=== PATIENT | female | born 1950 | race Caucasian/White ===

== ENCOUNTER → 2024-10-02 12:35 | Outpatient (REF) | payer MEDICARE, OTHER, SELFPAY ==
[2024-10-02 13:16] LABS: Hematocrit 30.8 % (37.0-47.0); Hemoglobin 9.3 g/dL (12.0-16.0); Mean Corp Hgb Conc. 30.2 g/dL (33.0-37.0); Mean Corpuscular Volume 88.0 fL (81.0-99.0); Platelet Count 177 10^3/uL (130-400); Red Cell Dist. Width 17.5 % (11.5-14.5)
[2024-10-02 13:38] LABS: Nucleated Red Blood Cells % 0 %
[2024-10-02 14:09] LABS: ALT (SGPT) 12 U/L (0-35); AST (SGOT) 21 U/L (14-36); Albumin 3.8 g/dl (3.5-5.0); Alkaline Phosphatase 36 U/L (38-126); Blood Urea Nitrogen 25 mg/dl (7-17); Calcium 8.9 mg/dl (8.4-10.2); Carbon Dioxide 24 mmol/L (22-30); Chloride 112 mmol/L (98-107); Glucose 83 mg/dl (70-99); Potassium 4.0 mmol/L (3.5-5.1); Sodium 143 mmol/L (135-145); Total Protein 6.4 g/dl (6.3-8.2); eGFR > 60.00
== END ==
LOC: SDSPAT 12:35
PROVIDERS: ATTENDING PHYSICIAN Student in an Organized Health Care Education/Training Program; FAMILY PHYSICIAN Internal Medicine; OTHER PHYSICIAN Internal Medicine Cardiovascular Disease
DX: I20.0 Unstable angina (principal); I10 Essential (primary) hypertension; E11.9 Type 2 diabetes mellitus without complications
CPT/HCPCS: 36415; 80053; 85025; 93005

== ENCOUNTER 2024-10-13 07:28 | Day surgery (SDC) | payer MEDICARE, OTHER, SELFPAY ==
[2024-10-13] VITALS (10 sets, daily range): BP systolic 111–133; BP diastolic 52–64; BMI 29.3
[2024-10-13 08:24] LABS: Glucose - Point of Care 93 mg/dl (70-99)
[2024-10-13] MEDS: NSS 204 ML IV (08:31)
--- NOTE | 2024-10-13 10:24 | ITS.CL.PN ---
[employer] - Procedure Note
Procedure
Procedure Note:
CARDIAC CATHETERIZATION REPORT
Date of Procedure: 10/13/2024
Referring: Dr. Samm Hu MD
Indication: anginal chest pain with positive coronary CTA
PROCEDURE(S)
1. left heart catheterization
2. coronary angiography
ACCESS: 6F right left artery (closure: radial band)
CATHETERS
1. 6F JR4
2. 6F JL4
MODERATE SEDATION: 25 minutes of moderate sedation was utilized. An independent medical administrative was present to assist with and help manage the patient's level of consciousness and physiologic status.
HEMODYNAMIC DATA
LV 128/13 (EDP 23) mmHg
AO 135/62 (mean 90) mmHg
CORONARY ANGIOGRAPHY
Dominance: Right
LM: Large, with very mild distal tapering
LAD: Large-caliber vessel giving rise to an early dominant septal gas desulfurizer, large D1, and small D2 before wrapping around the apex. There is diffuse extraluminal calcium in the proximal to mid vessel but no significant obstructive disease with
mild luminal irregularities up to 30%.
LCx: Moderate caliber vessel giving rise to a small ramus/OM1, small OM2, and small LPL branch. There is mild diffuse disease.
RCA: Large vessel giving rise to a moderate caliber RPDA, small RPL1, moderate caliber RPL2, and small RPL3. There are mild luminal irregularities only.
RADIATION: dose 306 mGy; DAP 19.2 Gy*cm2; fluoroscopy time 2.6 min
CONCLUSIONS
1. Nonobstructive coronary artery disease as described in a right dominant system
2. Mildly elevated LV filling pressure and no aortic stenosis
RECOMMENDATIONS
1. Aggressive secondary prevention of coronary artery disease
2. Workup for etiology of patient's symptoms not related to epicardial coronary disease
Copy to: Dr. Samm Hu MD (instructional design manager); Dr. Helder Dean MD (PCP)
Signed: Narendra Bolivar MD, PhD
== END 2024-10-13 13:00 | disposition home or self-care (01) ==
LOC: CATH 07:28
PROVIDERS: ATTENDING PHYSICIAN Student in an Organized Health Care Education/Training Program; FAMILY PHYSICIAN Internal Medicine
DX: I25.119 Atherosclerotic heart disease of native coronary artery with unspecified angina pectoris (principal); E11.9 Type 2 diabetes mellitus without complications; I10 Essential (primary) hypertension; D50.9 Iron deficiency anemia, unspecified; I44.7 Left bundle-branch block, unspecified; I47.10 Supraventricular tachycardia, unspecified; G20.A1 Parkinson's disease without dyskinesia, without mention of fluctuations; Z79.4 Long term (current) use of insulin; E78.5 Hyperlipidemia, unspecified; C91.10 Chronic lymphocytic leukemia of B-cell type not having achieved remission; Z92.3 Personal history of irradiation; Z92.21 Personal history of antineoplastic chemotherapy; Z98.890 Other specified postprocedural states; Z85.3 Personal history of malignant neoplasm of breast; Z90.13 Acquired absence of bilateral breasts and nipples; Z79.01 Long term (current) use of anticoagulants; F32.A Depression, unspecified; F41.9 Anxiety disorder, unspecified; C88.40 Extranodal marginal zone B-cell lymphoma of mucosa-associated lymphoid tissue [MALT-lymphoma] not having achieved remission; E03.9 Hypothyroidism, unspecified
CPT/HCPCS: 99152; 99153; 82962; 93458; C1894; Q9967